=== PATIENT | female | born 1965 | race Caucasian/White ===

== ENCOUNTER 2017-08-26 10:41 | Emergency (ER) | payer OTHER ==
[2017-08-26 11:02] VITALS: BMI 32.3
[2017-08-26] MEDS ORDERED: SODIUM CHLORIDE 1,000 ML IV STA (12:14)
[2017-08-26] MEDS ORDERED: KETOROLAC TROMETHAMINE 30 MG/1 ML VIAL IVPUSH ONE (12:15)
--- NOTE | 2017-08-26 12:18 | PDOC ---
Attending Attestation - HPI HPI: 08/26/17 13:05 The patient is a 51 year old female with a significant PMH of hypertension who presents to the emergency department with 3 weeks of lower back pain. The patient reports that her lower back pain has worsened over the past 3 days . she states that her lower back pain is intermittent, worse with movement and has causes her discomfort. The patient reports occasional chest pain that radiates to her shoulders. She reports associated SOB with her chest pain. The patient denies any headache or dizziness. She denies any fever, chills, nausea, vomit, diarrhea or constipation. She denies any urinary symptoms. The patient denies any numbness , weakness or tingling sensation. The patient denies any other complaints. Documentation prepared by Mark Montaño, acting as medical customer service representative for Andrzej Phillips MD. - Physicial Exam PE: 08/26/17 13:05 Vitals: Triage vital signs reviewed General Appearance: No acute distress, well nourished, well developed Head: Atraumatic Neck: Supple; No nuchal rigidity Chest Wall: Nontender Cardiac: Regular rate and rhythm, no murmurs, no rubs, no gallops Lungs: Clear to auscultation bilateral, good air movement bilaterally Abdomen: Soft, nondistended, normal bowel sounds, nontender to palpation Genitourinary: Rectal: Exam deferred Extremities:(+) reproducible bilateral lower back pain on exam. Full range of motion to all extremities, no cyanosis, clubbing, or edema Skin: Warm and dry, no rashes or lesions, no rash, no petechiae Neuro: AOX3; Cranial Nerves 2-12 grossly intact, Strength intact to all extremities, Sensation intact to all extremities, gait normal Psych: Normal mood, normal affect - Medical Decision Making 08/26/17 13:05 The patient is a 51 year old female with a significant PMH of hypertension who presents to the emergency department with 3 weeks of lower back pain The patient will get a CT of back. <Mark Montaño - Last Filed: 08/26/17 13:05> - Resident Resident Name: Db Ambrocio - ED Attending Attestation I have performed the following: I have examined & evaluated the patient, The case was reviewed & discussed with the resident, I agree w/resident's findings & plan, Exceptions are as noted - Medical Decision Making 08/26/17 16:49 Low back discomfort x-rays within normal limits labs within normal limits patient feels better after Tylenol. We will discharge home with orthopedic follow-up Findings, need for follow-up and strict return instructions discussed with patient. <Andrzej Phillips - Last Filed: 08/26/17 16:51> Heart Score/ECG Review - ECG Impressions Comment:: 08/26/17 16:50 EKG performed at 75 bpm. MT interval 164 QRS 84 QTC 437 also elevations or T- wave inversions Interpreted by me. <Andrzej Phillips - Last Filed: 08/26/17 16:51>
--- NOTE | 2017-08-26 12:40 | PDOC ---
History of Present Illness - General Chief Complaint: Pain Stated Complaint: KIDNEY PAIN Time Seen by Provider: 08/26/17 11:50 History Source: Patient Exam Limitations: Language Barrier - History of Present Illness Initial Comments: 08/26/17 12:35 Patient is a 51F with history of HTN here today complaining of "kidney pain" for the past three weeks, worsening over the past 3 days. Patient states her pain is located bilaterally in her lower back, with the left hurting more than the right. Patient denies fevers, chills, nausea, vomiting, and pain with urination. She states that her pain is made worse with movement. Denies trauma, problems going to the bathroom and IVDU. Patient states that she's been able to walk, but with pain. Denies any focal weakness. Endorses shortness of breath, denies leg swelling, chest pain, and history of blood clots. Past History - Past Medical History Allergies/Adverse Reactions: Allergies Allergy/AdvReac Type Severity Reaction Status Date / Time No Known Allergies Allergy Verified 08/26/17 10:58 COPD: No HTN: Yes - Surgical History Cholecystectomy: Yes - Suicide/Smoking/Psychosocial Hx Smoking History: Current every day smoker Have you smoked in the past 12 months: Yes Number of Cigarettes Smoked Daily: 10 Information on smoking cessation initiated: Yes 'Breaking Loose' booklet given: 08/26/17 Hx Alcohol Use: No Drug/Substance Use Hx: No Substance Use Type: None Review of Systems - Review of Systems Comments:: 08/26/17 12:38 GENERAL/CONSTITUTIONAL: No fever or chills. No weakness. HEAD, EYES, EARS, NOSE AND THROAT: No change in vision. No sore throat. CARDIOVASCULAR: No chest pain. Positive for shortness of breath RESPIRATORY: No cough, wheezing, or hemoptysis. GASTROINTESTINAL: No nausea, vomiting, diarrhea or constipation. GENITOURINARY: No dysuria, frequency, or change in urination. MUSCULOSKELETAL: No joint or muscle swelling or pain. Positive for back pain. SKIN: No rash NEUROLOGIC: No headache, vertigo, loss of consciousness, or change in strength/ sensation. HEMATOLOGIC/LYMPHATIC: No anemia, easy bleeding, or history of blood clots. ALLERGIC/IMMUNOLOGIC: No hives or skin allergy. *Physical Exam - Vital Signs Last Vital Signs Temp Pulse Resp BP Pulse Ox 97.8 F 84 18 126/95 100 08/26/17 10:59 08/26/17 10:59 08/26/17 10:59 08/26/17 10:59 08/26/17 10:59 - Physical Exam Comments: 08/26/17 12:38 GENERAL: Awake, alert, and fully oriented, in no acute distress HEAD: No signs of trauma, normocephalic, atraumatic EYES: PERRLA, EOMI, sclera anicteric, conjunctiva clear ENT: Auricles normal inspection, hearing grossly normal, nares patent, oropharynx clear without exudates. Moist mucosa NECK: Normal ROM, supple, no lymphadenopathy, JVD, or masses LUNGS: Tachypneic, speaks full sentences, clear to auscultation bilaterally HEART: Regular rate and rhythm, normal S1 and S2, no murmurs, rubs or gallops, peripheral pulses normal and equal bilaterally. ABDOMEN: Soft, nontender, normoactive bowel sounds. No guarding, no rebound. No masses BACK: Tender to palpation bilaterally in lower back, no midline tenderness EXTREMITIES: Normal inspection, Normal range of motion, no edema. No clubbing or cyanosis. NEUROLOGICAL: Cranial nerves II through XII grossly intact. Normal speech, normal gait, no focal sensorimotor deficits, no cerebellar signs. SKIN: Warm, Dry, normal turgor, no rashes or lesions noted. ED Treatment Course - LABORATORY CBC & Chemistry Diagram: 08/26/17 13:23 08/26/17 13:23 - RADIOLOGY Radiology Studies Ordered: Category Date Time Status CHEST PA & LAT [RAD] Stat Radiology 08/26/17 12:15 Ordered Medical Decision Making - Medical Decision Making 08/26/17 12:40 Patient is 51F with history of HTN here today with lower back pain. Process Engineer used to gather history. DDx includes, but is not limited to: MSK pain, kidney stones, LL pneumonia. Will evaluate with cbc, cmp, cxr. Will treat with fluids and toradol. 08/26/17 15:25 Laboratory Tests 08/26/17 08/26/17 08/26/17 13:23 13:23 13:25 WBC 10.1 H Hgb 14.2 Plt Count 440 H Troponin I < 0.02 Urine Nitrite Negative Ur Leukocyte Esterase 1+ H Urine WBC (Auto) 3 Urine RBC (Auto) 2 CBC shows small leukocytosis, troponin undetectable, UA negative, cmp reassuring. Pending x-ray reads. 08/26/17 16:24 CXR, lumbar spine x-rays negative. Will discharge with return precautions and ortho follow up. 08/26/17 16:43 EKG shows normal sinus rhythm with rate of 75. No st elevation/depression. No significant t wave abnormalities. Normal SC/QRS/QTc intervals. *DC/Admit/Observation/Transfer Diagnosis at time of Disposition: Back pain - Discharge Dispostion Disposition: HOME Condition at time of disposition: Good Decision to Admit order: No - Referrals Referrals: Sally Campbell MD [Primary Care Provider] - Shaheen Damon MD [Staff Physician] - - Patient Instructions Printed Discharge Instructions: DI for Low Back Pain Additional Instructions: Please return if you have any new worsening or concerning symptoms. Please follow up with your primary care physician this week. Print Language: [place] - Post Discharge Activity Forms/Work/School Notes: Back to Work
[2017-08-26] MEDS ORDERED: KETOROLAC TROMETHAMINE 30 MG/1 ML VIAL ONE (13:28)
[2017-08-26 13:49] LABS: HEMOGLOBIN 14.2 GM/dL (10.7-15.3); MCH 29.2 pg (25.7-33.7); MCHC 33.2 g/dl (32.0-36.0); MEAN CELL VOLUME 88.1 fl (80-96); MEAN PLT VOLUME 7.4 fl (7.5-11.1); PLATELET COUNT 440 K/MM3 (134-434); RBC 4.88 M/mm3 (3.60-5.2); RDW 14.1 % (11.6-15.6); WHITE BLOOD COUNT 10.1 K/mm3 (4.0-10.0)
[2017-08-26 14:08] LABS: URINE APPEARANCE CLEAR; URINE BILIRUBIN NEGATIVE (<2.0 mg/dL); URINE COLOR LTYELLOW; URINE GLUCOSE (UA) NEGATIVE (NEGATIVE); URINE KETONE NEGATIVE (NEGATIVE); URINE NITRITE NEGATIVE (NEGATIVE); URINE PROTEIN NEGATIVE (NEGATIVE); URINE UROBILINOGEN NEGATIVE mg/dL (0.2-1.0)
[2017-08-26 14:19] LABS: ALBUMIN 3.7 g/dl (3.4-5.0); ANION GAP 6 (8-16); BILIRUBIN,TOTAL 0.3 mg/dL (0.2-1.0); BLOOD UREA NITROGEN 11 mg/dL (7-18); CALCIUM 8.8 mg/dL (8.5-10.1); CHLORIDE 108 mmol/L (98-107); CO2 26 mmol/L (21-32); CREATININE 0.6 mg/dL (0.55-1.02); GLUCOSE,RANDOM 83 mg/dL (74-106); SGPT/ALT 28 U/L (12-78); SODIUM 140 mmol/L (136-145); TOT PROT 7.7 g/dl (6.4-8.2)
[2017-08-26 14:21] LABS: ALK PHOS 155 U/L (45-117)
[2017-08-26 14:22] LABS: URINE LEUK ESTERASE 1+ (NEGATIVE)
[2017-08-26 14:26] LABS: POTASSIUM 5.4 mmol/L (3.5-5.1); SGOT/AST 41 U/L (15-37)
[2017-08-26 14:28] LABS: EPI CELLS RARE /HPF (FEW)
[2017-08-26] MEDS ORDERED: ACETAMINOPHEN 325 MG TABLET (FP) PO ONE (16:31)
[2017-08-26] MEDS ORDERED: ACETAMINOPHEN 325 MG TABLET (FP) ONE (16:41)
[2017-08-26 16:51] VITALS: BP 116/79; PULSE 73; TEMP 97.9
--- NOTE | 2017-08-27 11:55 | EKG ---
Test Reason : Blood Pressure : / mmHG Vent. Rate : 075 BPM Atrial Rate : 075 BPM P-R Int : 164 ms QRS Dur : 084 ms QT Int : 392 ms P-R-T Axes : 063 005 052 degrees QTc Int : 437 ms NORMAL SINUS RHYTHM NORMAL ECG NO PREVIOUS ECGS AVAILABLE Confirmed by MD LEXIE, LEANNA ([id number]) on 08/27/2017 11:55:44 AM Referred By: Confirmed By:LEANNA OWEN MD
== END 2017-08-26 16:51 | disposition home or self-care (01) ==
LOC: JER 10:41
PROC: 3E0337Z Introduction of Electrolytic and Water Balance Substance into Peripheral Vein, Percutaneous Approach (ICD-10-PCS; principal; 2017-08-26)
PROC: 3E0333Z Introduction of Anti-inflammatory into Peripheral Vein, Percutaneous Approach (ICD-10-PCS; 2017-08-26)
DX: M54.5 Low back pain (principal); I10 Essential (primary) hypertension; F17.210 Nicotine dependence, cigarettes, uncomplicated
CPT/HCPCS: 36415; 71046-TC-FY; 72100-TC-FY; 80053; 81003; 81015; 84484; 85027; 93005; 93010; 96361; 96374; 99284-25; J7030

== ENCOUNTER 2018-04-26 14:55 | Emergency (ER) | payer OTHER ==
[2018-04-26 15:06] VITALS: TEMP 98.2; BMI 32.5
--- NOTE | 2018-04-26 15:14 | PDOC ---
History of Present Illness - General Chief Complaint: Chest Pain Stated Complaint: CHEST PAIN Time Seen by Provider: 04/26/18 15:13 History Source: Patient Exam Limitations: No Limitations - History of Present Illness Initial Comments: Pt presenting with complaints of increased fatigue, skin flushing, and chest pain x2 days. Pt states over the past few days, she has woken up feeling fatigued, and is feeling more fatigued throughout the day, worsening each day. She states her skin is feeling flushed, and has been feeling naseous. She has had intermittent mid-sternal chest pain. The pain is pressure-like, lasts for about 10 minutes, but is not associated with radiation or diaphoresis. She went to [place] [facility] 4 days ago, for feeling like "her thyroid and was prescribed 5 mg PO methimazole, which she did not take for concerns of any side effects. She had a recent mammogram and was told she needs a R breast biopsy ( scheduled for Saturday). She has also recently been told she has an "ovarian mass". Pt denies any fevers/chills, headache, vision changes, syncope, palpitations, SOB, vomiting, abdominal pain, urinary symptoms, diarrhea/ constipation, or leg swelling. PCP: Dr. Greene Endocrine: Dr. Kramer Social: Pt smokes 2-3 cigarettes per day; denies alcohol or drug use. Pt denies any recent travel or sick contacts. Surgical: cholecystectomy Family: HTN/DM in parents and grandparents. 04/26/18 15:15 04/26/18 17:13 Past History - Travel Traveled outside of the country in the last 30 days: No Close contact w/someone who was outside of country & ill: No - Past Medical History Allergies/Adverse Reactions: Allergies Allergy/AdvReac Type Severity Reaction Status Date / Time diphenhydramine Allergy Verified 04/26/18 15:12 [From Benadryl] Home Medications: Ambulatory Orders Amlodipine Besylate 5 mg PO DAILY 04/26/18 COPD: No Diabetes: No HTN: Yes Hypercholesterolemia: No Thyroid Disease: Yes (hypo) - Surgical History Cholecystectomy: Yes - Family Disease History Family Disease History: Diabetes: Grandparents (htn), Father (htn), Mother (htn) , Heart Disease: Grandparents, Father, Mother - Reproductive History LMP comment: Dec 2016 - Suicide/Smoking/Psychosocial Hx Smoking History: Current every day smoker Have you smoked in the past 12 months: Yes Number of Cigarettes Smoked Daily: 3 Information on smoking cessation initiated: No 'Breaking Loose' booklet given: 08/26/17 Hx Alcohol Use: No Drug/Substance Use Hx: No Substance Use Type: None Review of Systems - Review of Systems Able to Perform ROS?: Yes (fashion illustrator used) Is the patient limited Luxem[place]ish proficient: Yes Constitutional: Yes: Weight Stable. No: Chills, Diaphoresis, Fever, Loss of Appetite, Night Sweats, Weakness HEENTM: No: Recent change in vision, Double Vision, Throat Pain, Throat Swelling , Difficulty Swallowing Respiratory: No: Cough, Orthopnea, Shortness of Breath Cardiac (ROS): Yes: Chest Pain. No: Edema, Irregular Heart Rate, Lightheadedness, Palpitations, Syncope, Chest Tightness ABD/GI: Yes: Nausea. No: Constipated, Diarrhea, Poor Appetite, Poor Fluid Intake, Vomiting, Abdominal cramping : No: Burning, Dysuria, Flank Pain, Pain, Urgency Musculoskeletal: No: Back Pain, Joint Pain Integumentary: Yes: Flushing. No: Rash, Sweating Neurological: Yes: Dizziness (vertigo). No: Headache, Numbness, Paresthesia, Seizure, Tremors, Weakness, Unsteady Gait, Ataxia Psychiatric: No: Sleep Pattern Change, Change in Appetite Endocrine: Yes: Flushing, Intolerance to Cold, Intolerance to Heat. No: Increased Urine Hematologic/Lymphatic: No: Anemia, Blood Clots, Easy Bleeding, Easy Bruising All Other Systems: Reviewed and Negative *Physical Exam - Vital Signs Last Vital Signs Temp Pulse Resp BP Pulse Ox 98.2 F 101 H 20 121/97 97 04/26/18 14:59 04/26/18 14:59 04/26/18 14:59 04/26/18 14:59 04/26/18 14:59 - Physical Exam General Appearance: Yes: Nourished, Appropriately Dressed, Obese. No: Apparent Distress HEENT: positive: EOMI, TD, Normal ENT Inspection, Normal Voice, Pharynx Normal , Hearing Grossly Normal. negative: Scleral Icterus (R), Scleral Icterus (L), Muffled/Hoarse voice, Pharyngeal Erythema, Tonsillar Exudate, Tonsillar Erythema , Excessive drooling Neck: positive: Trachea midline, Normal Thyroid, Supple. negative: Tender, Rigid, Carotid bruit, Decreased range of motion, Stridor, Lymphadenopathy (R), Lymphadenopathy (L), Thyromegaly Respiratory/Chest: positive: Lungs Clear, Normal Breath Sounds. negative: Chest Tender, Respiratory Distress, Accessory Muscle Use, Crackles, Wheezing Cardiovascular: positive: Regular Rhythm, S1, S2, Tachycardia. negative: Regular Rate, Edema, JVD, Murmur Vascular Pulses: Carotid (R): 4+, Carotid (L): 4+ Gastrointestinal/Abdominal: positive: Normal Bowel Sounds, Soft, Protuberent. negative: Tender, Flat, Organomegaly, Pulsatile Mass Rectal Exam: positive: deferred Lymphatic: negative: Adenopathy, Tenderness Musculoskeletal: positive: Normal Inspection. negative: CVA Tenderness Extremity: positive: Normal Capillary Refill, Normal Inspection, Normal Range of Motion, Pelvis Stable. negative: Tender Integumentary: positive: Normal Color, Dry, Warm. negative: Jaundice, Clammy, Diaphoresis Neurologic: positive: it support manager II-XII NML intact, Fully Oriented, Alert, Normal Response, Motor Strength 5/5. negative: Normal Mood/Affect (pt anxious), EOM Palsy, Numbness Moderate Sedation - Procedure Monitoring Vital Signs: Procedure Monitoring Vital Signs Temperature 98.2 F 04/26/18 14:59 Pulse Rate 101 H 04/26/18 14:59 Respiratory Rate 20 04/26/18 14:59 Blood Pressure 121/97 04/26/18 14:59 O2 Sat by Pulse Oximetry (%) 97 04/26/18 14:59 ED Treatment Course - LABORATORY CBC & Chemistry Diagram: 04/26/18 15:53 04/26/18 15:53 Medical Decision Making - Medical Decision Making Pt was seen at bedside, also will be seen by attending Dr. Montero. Pt presenting with complaints of increased fatigue, skin flushing, and chest pain x2 days. Pt states over the past few days, she has woken up feeling fatigued, and is feeling more fatigued throughout the day, worsening each day. She states her skin is feeling flushed, and has been feeling naseous. She has had intermittent mid-sternal chest pain. The pain is pressure-like, lasts for about 10 minutes, but is not associated with radiation or diaphoresis. She went to [facility] 4 days ago, and was prescribed methimazole, which she did not take for concerns of any side effects. She had a recent mammogram and was told she needs a R breast biopsy (scheduled for Saturday). She has also recently been told she has an "ovarian mass". Pt denies any fevers/chills, headache, vision changes, syncope, palpitations, SOB, vomiting, abdominal pain, urinary symptoms, diarrhea/constipation, or leg swelling. Minimal tachycardia (101), afebrile, BP stable. PE showed no thyroid goiter, no pharyngeal edema. Heart and lung sounds clear. Considering thyroid disorder (thyroid storm, hypo/hyperthyroidism), electrolyte imbalances, ACS Ordered work-up including ECG, CBC, CMP, serum , TSH, free T4, and chest x-ray. Provided 650 mg PO tylenol for improvement of discomfort. Cannot provide meclizine for anxiety/vertigo as pt allergic to anti-histamines (throat swelling ) Will continue to reassess pt and monitor for symptomatic improvement. 04/26/18 15:15 CBC: mild WBC elevation (likely reactive) 12.5 CMP: generally WNL Trop <.02 TSH <.01 (low -- will have pt stop levothyroxine), T4 1.01 (WNL) Pt taken for chest x-ray. 04/26/18 16:51 Chest x-ray appears clear. Pt can be discharged to home with follow-up. Pt advised to keep her PCP appointment (Saturday), her endocrine appointment (Saturday), and scheduled breast biopsy (Saturday). Strict return precautions provided with pt understanding. Pt advised to stop taking levothyroxine until she sees her audit consultant on Saturday (TSH was low). 04/26/18 17:22 04/26/18 18:26 *DC/Admit/Observation/Transfer Diagnosis at time of Disposition: Chest pain Qualifiers: Chest pain type: unspecified Qualified Code(s): R07.9 - Chest pain, unspecified - Discharge Dispostion Disposition: HOME Condition at time of disposition: Improved Decision to Admit order: No - Referrals Referrals: Coreen Moffett MD [Primary Care Provider] - - Patient Instructions Printed Discharge Instructions: DI for Atypical Chest Pain, DI for Hypothyroidism Additional Instructions: You were seen in the ER today for chest pain and skin flushing. The results of your labs and imaging today showed decreased thyroid levels. Please keep your appointments with your PCP and audit consultant. Please return to the ER if you have any worsening chest pain, development of fevers or chills, loss of consciousness, inability to tolerate food or fluids, or any other concerns. Please stop taking your levothyroxine until you see your audit consultant on Saturday. Print Language: [place] CITIZEN - Post Discharge Activity
--- NOTE | 2018-04-26 15:59 | PDOC ---
Attending Attestation - HPI HPI: 04/26/18 16:31 The patient is a 52 year old female with a significant PMH of hypothyroidism and HTN who presents to the emergency department with generalized weakness, dizziness, and chest tightness for the past several days. Patient describes the dizziness as the room is spinning. Patient states the chest tightness is worse on right side with radiating to her left arm. Patient also admits to nausea but no vomiting. The patient was concerned as she was recently told "she had something in her ovary" and was found to "have something else in her right breast which they biopsied." Patient also went to an emergency room in [place] 4 days ago for swelling in her throat secondary to hypothyroidism and was discharged home on medication which she has not taken. Patient will see her thyroid doctor early next week. The patient denies shortness of breath, and headache. Denies fever, chills, vomit, diarrhea and constipation. Denies dysuria, frequency, urgency and hematuria. Allergies: NKA Past surgical history: cholecystectomy Social history: No reported drug or alcohol use. Smokes 2-3 cigarettes per day. PCP: Dr. Greene <Bailye Ryder - Last Filed: 04/26/18 16:32> - Resident Resident Name: Keyla Garcia - ED Attending Attestation I have performed the following: I have examined & evaluated the patient, The case was reviewed & discussed with the resident, I agree w/resident's findings & plan, Exceptions are as noted - Physicial Exam PE: GENERAL: Awake, alert, and fully oriented, in no acute distress. Appears anxious. HEAD: No signs of trauma EYES: PERRLA, EOMI, sclera anicteric, conjunctiva clear ENT: Auricles normal inspection, hearing grossly normal, nares patent, oropharynx clear without exudates. Moist mucosa NECK: Normal ROM, supple, no lymphadenopathy, JVD, or masses LUNGS: Breath sounds equal, clear to auscultation bilaterally. No wheezes, and no crackles HEART: Regular rate and rhythm, normal S1 and S2, no murmurs, rubs or gallops ABDOMEN: Soft, nontender, normoactive bowel sounds. No guarding, no rebound. No masses EXTREMITIES: Normal range of motion, no edema. No clubbing or cyanosis. No cords, erythema, or tenderness NEUROLOGICAL: Cranial nerves II through XII grossly intact. Normal speech, normal gait. Motor and sensation intact SKIN: Warm, Dry, normal turgor, no rashes or lesions noted. - Medical Decision Making Pt with signs of hyperthyroid on labs. She has appt with her PMD on Saturday (it is currently Saturday) and an pedicurist on Saturday. Advised her to hold her synthroid until she follows up. No signs of thyroid storm. Her main concern is that she recently was told she has a mass in her breast ( pending outpatient biopsy) and in her ovary (evaluated by salesperson used cars, needs surgery, but is still waiting for approval for surgery). <Tarsha Montero - Last Filed: 04/26/18 17:36>
[2018-04-26 16:17] LABS: BASO % 0.5 % (0-2.0); EOS % 2.8 % (0-4.5); HEMATOCRIT 38.8 % (32.4-45.2); HEMOGLOBIN 13.1 GM/dL (10.7-15.3); LYMPH % 27.6 % (8-40); MCH 28.6 pg (25.7-33.7); MCHC 33.9 g/dl (32.0-36.0); MEAN CELL VOLUME 84.2 fl (80-96); MEAN PLT VOLUME 7.6 fl (7.5-11.1); MONO % 7.7 % (3.8-10.2); NEUT % 61.4 % (42.8-82.8); PLATELET COUNT 455 K/MM3 (134-434); RDW 15.1 % (11.6-15.6); WHITE BLOOD COUNT 12.5 K/mm3 (4.0-10.0)
[2018-04-26] MEDS ORDERED: ACETAMINOPHEN 325 MG TABLET (FP) PO ONE (16:19)
[2018-04-26 16:31] LABS: ALBUMIN 3.4 g/dl (3.4-5.0); ALK PHOS 179 U/L (45-117); ANION GAP 5 MMOL/L (8-16); BILIRUBIN,TOTAL 0.2 mg/dL (0.2-1); BLOOD UREA NITROGEN 12 mg/dL (7-18); CALCIUM 9.2 mg/dL (8.5-10.1); CHLORIDE 106 mmol/L (98-107); CO2 29 mmol/L (21-32); CREATININE 0.8 mg/dL (0.55-1.3); GLUCOSE,RANDOM 95 mg/dL (74-106); POTASSIUM 4.1 mmol/L (3.5-5.1); SGOT/AST 23 U/L (15-37); SGPT/ALT 32 U/L (13-61); SODIUM 141 mmol/L (136-145); TOT PROT 6.7 g/dl (6.4-8.2)
[2018-04-26] MEDS ORDERED: ACETAMINOPHEN 325 MG TABLET (FP) ONE (16:33)
[2018-04-26 17:43] VITALS: BP 136/82; PULSE 85
--- NOTE | 2018-04-27 08:42 | EKG ---
Test Reason : Blood Pressure : / mmHG Vent. Rate : 094 BPM Atrial Rate : 094 BPM P-R Int : 166 ms QRS Dur : 080 ms QT Int : 340 ms P-R-T Axes : 060 004 053 degrees QTc Int : 425 ms NORMAL SINUS RHYTHM POSSIBLE LEFT ATRIAL ENLARGEMENT BORDERLINE ECG WHEN COMPARED WITH ECG OF 26-AUG-2017 14:59, NO SIGNIFICANT CHANGE WAS FOUND Confirmed by MEDINA GREENFIELD, EMELIA ([id number]) on 04/27/2018 8:41:42 AM Referred By: Confirmed By:EMELIA HANEY MD
== END 2018-04-26 17:43 | disposition home or self-care (01) ==
LOC: JER 14:55
DX: R07.9 Chest pain, unspecified (principal); E03.9 Hypothyroidism, unspecified; I10 Essential (primary) hypertension
CPT/HCPCS: 36415; 71046-TC-FY; 80053; 84439; 84443; 84484; 84703; 85025; 93005; 93010; 99283-25

== ENCOUNTER 2018-09-05 14:20 | Emergency (ER) | payer OTHER ==
[2018-09-05] MEDS ORDERED: ASPIRIN 81 MG CHEWABLE TABLETS PO ONE (14:28)
--- NOTE | 2018-09-05 14:28 | PDOC ---
Rapid Medical Evaluation Time Seen by Provider: 09/05/18 14:26 Medical Evaluation: Allergies Allergy/AdvReac Type Severity Reaction Status Date / Time diphenhydramine Allergy Verified 04/26/18 15:12 [From Benadryl] 09/05/18 14:26 I have performed a brief in-person evaluation of this patient. The patient presents with a chief complaint of: chest pain x 1.5 hours, started in epigastrum and radiated up, intermittent left arm pain as well now resolved. mild SOB. hx HTN, "thyroid" +smoker. PCP Jc Pertinent physical exam findings: uncomfortable appearing, tachy I have ordered the following: ekg, labs, aspiring The patient will proceed to the ED for further evaluation.
[2018-09-05 14:29] VITALS: TEMP 98; BMI 31.3
--- NOTE | 2018-09-05 15:11 | PDOC ---
History of Present Illness - General Chief Complaint: Chest Pain Stated Complaint: CHEST PAIN Time Seen by Provider: 09/05/18 14:26 - History of Present Illness Initial Comments: Constance Griffith is a [place]an-speaking woman (interviewed w/ phone educational sign language interpreter [id number]) who presents reporting mid-sternal chest pain, left arm pain, and nausea that started after lunch today. She states that the pain started "in the pit of her stomach" around noon, immediately after she ate lunch. She says it is now a burning pain in her sternum and cramping pain in her left arm. The pain comes and goes randomly. She has not noticed any association with movement , position, or exertion. She says that she had lightheadedness and nausea along with the pain, and she thinks she might have been sweating earlier. She denies any recent change in medications, travel, sick contacts immobilization, or other recent changes. She says that her medical conditions are well controlled on her current meds. Ms Griffith is extremely concerned that the pain is due to a heart problem as her father at age 35 from unknown heart problems, and her sister had 3 heart attacks. She also reports being a current smoker; she had quit 4 months ago but went back to smoking 2 cigarettes per day. Past History - Past Medical History Allergies/Adverse Reactions: Allergies Allergy/AdvReac Type Severity Reaction Status Date / Time diphenhydramine Allergy Verified 09/05/18 14:29 [From Jose] Home Medications: Ambulatory Orders Amlodipine Besylate 5 mg PO DAILY 04/26/18 COPD: No Diabetes: No HTN: Yes Hypercholesterolemia: No Thyroid Disease: Yes (hypo) - Surgical History Cholecystectomy: Yes - Family Disease History Family Disease History: Diabetes: Grandparents (htn), Father (htn), Mother (htn) , Heart Disease: Grandparents, Father, Mother - Suicide/Smoking/Psychosocial Hx Smoking History: Current every day smoker Have you smoked in the past 12 months: Yes Number of Cigarettes Smoked Daily: 3 Information on smoking cessation initiated: No 'Breaking Loose' booklet given: 08/26/17 Hx Alcohol Use: No Drug/Substance Use Hx: No Substance Use Type: None Review of Systems - Review of Systems Comments:: General: No fevers, no chills, no weight or appetite change, no malaise HEENT: No changes in vision, no changes in hearing, no congestion, no sore throat CV: +chest pain, no palpitations, no LE edema Pulm: No SOB, no cough, no wheezing GI: +nausea, no change in bowel habits, no melena : No frequency, no urgency, no dysuria Musc: No back pain, no joint swelling, no recent injury. +L arm pain Skin: No rash, no lesions, no erythema Endo: No excessive thirst, no heat/cold intolerance Heme: No unusual bruising or bleeding, no swollen glands Neuro: No syncope, no numbness/tingling, no focal weakness Vasc: No claudication Psych: No recent change in mood, no SI or HI *Physical Exam - Vital Signs Last Vital Signs Temp Pulse Resp BP Pulse Ox 98 F 112 H 19 155/91 100 09/05/18 14:27 09/05/18 14:27 09/05/18 14:27 09/05/18 14:27 09/05/18 14:27 - Physical Exam Comments: General: Anxious, uncomfortable, in no acute distress HEENT: PERRL, EOMI, MMM, voice normal, normal neck ROM Cards: Tachycardic, regular, no murmur appreciated. Mid-sternal TTP Pulm: Tachypnic, satting well on RA, clear to auscultation bilaterally w/o wheezing or crackles Abd: Soft, nontender, nondistended Ext: Atraumatic. No LE edema. ROM intact. Left arm tender to light touch Vasc: Extremities WWP Skin: Normal color, no rashes or lesions Neuro: A&Ox3, CN grossly intact, normal speech, motor/sensory grossly intact and symmetric Psych: Very anxious ED Treatment Course - LABORATORY CBC & Chemistry Diagram: 09/05/18 15:43 09/05/18 15:43 Medical Decision Making - Medical Decision Making 09/05/18 15:32 Constance Griffith is a [place]an-speaking woman (interviewed w/ phone educational sign language interpreter [id number]) who presents reporting burning mid-sternal chest pain, cramping intermittent left arm pain, and nausea that started after lunch today. She is a current smoker and reports a significant family cardiac history (father age 35 of cardiac cause, sister with 3x VT and recently of VT). - Ddx includes ACS, anxiety, GERD. Less likely respiratory. No risk factors for PE. Given timing and description of symptoms, reproducibility of pain, GERD seems most likely but will work up for cardiac causes of chest/arm pain and nausea. - Cardiac workup including CBC, chemistry, coags, EKG, CXR ordered in E. Adding TSH, T4 due to history of hyperthyroid and tachycardia on arrival - Still feeling nauseated, burning reproducible sternal pain suggestive of reflux. Maalox, famotidine, zofran for symptoms. - May need admission due to family hx 09/05/18 17:13 - Labs completed, reviewed. Notable for TSH 0.01, T4 12.8 (called lab, not recorded in EMR). - Continued tachycardia to 101 on re-exam though feels better - Trop negative - Symptoms may be due to hyperthyroid and tachycardia - Will admit after CXR is completed 09/05/18 17:52 - CXR w/o acute abnormalities - [facility] sent for admission for hyperthyroidism, tachycardia, chest pain 09/05/18 19:01 - Called into room by Ms Griffith. She became very irate following her xray. She states that she has been ignored, no one would take her to the bathroom, and the treatment here has been "inhumane." She states her intention to leave the hospital. - Attempted to discuss all results again, rationale for recommending admission, and risks of leaving the hospital without additional workup. Explained that pain could potentially be caused by increased demand from tachycardia, placing strain on her heart. Phone speeder worker #[id number] used during the discussion. - Pt continued to demand to leave the hospital as soon as possible. 09/05/18 19:11 - Patient provided discharge instructions in [place]an - Attempted to have patient sign AMA form using phone speeder worker #[phone] but she refused to sign. Patient seen and discussed with Dr Avila. Sarah Hillman PGY1 *DC/Admit/Observation/Transfer Diagnosis at time of Disposition: Chest pain, Hyperthyroidism - Discharge Dispostion Disposition: AGAINST MEDICAL ADVICE - Referrals Referrals: Sally Campbell MD [Primary Care Provider] - - Patient Instructions Printed Discharge Instructions: DI for Hyperthyroidism, DI for Chest Pain Additional Instructions: Discharge Instructions: You were seen in the emergency department for chest pain, left arm pain, and fast heart rate. You had blood tests including blood counts, blood chemistry, a heart test called troponin, liver function, kidney function, and thyroid (TSH, T4). These tests were all normal except for your thyroid, which showed a TSH of 0.01 and T4 of 12.8. You had a chest xray that did not show any concerning abnormalities. You were given medications including IV acetaminophen (Tylenol), Maalox, and famotidine (Pepcid) to help with your symptoms while you were waiting for your test results. It was recommended that you stay in the hospital for additional workup due to continued pain, hyperthyroidism, and fast heart rate. This was to make sure that you did not have any heart strain from the fast heart rate. There is no way to tell with certainty that there is no cardiac problem until the tests are repeated at least twice. Please continue to take all of your regular medications at home. Make an appointment to see your regular doctor as soon as possible. You may need additional testing, adjustment of your medications, or referral to a purchasing analyst. Seek immediate care at the closest ER if you have continued or worsening symptoms, additional chest pain, difficulty breathing, or any other concerning symptoms. Instrucciones de descarga: Fue atendido en el departamento de emergencias por dolor en el pecho, dolor en el brazo akila y ritmo cardaco acelerado. Se le realizaron anlisis de bong, incluidos recuentos sanguneos, qumica sangunea, un anlisis cardaco llamado troponina, funcin heptica, funcin renal y tiroides (TSH, T4). Todas estas pruebas fueron normales, excepto la tiroides, que mostr omega TSH de 0.01 y omega T4 de 12.8. Tuvo omega radiografa de trax que no mostr anomalas preocupantes. Se le administraron medicamentos que incluyen paracetamol intravenoso (Tylenol) , Maalox y famotidina (Pepcid) para ayudarlo con steve sntomas mientras esperaba los resultados de stock[place] prueba. Se recomend que permanezca en el hospital para un tratamiento adicional debido al dolor continuo, el hipertiroidismo y la frecuencia cardaca rpida. [place] fue para asegurarse de que no tuvo ningn esfuerzo cardaco debido a la frecuencia cardaca rpida. No hay forma de saber con certeza que no hay un problema cardaco hasta que las pruebas se repitan al menos dos veces. Por favor contine tomando todos steve medicamentos regulares en casa. Landry omega edmond para gloria a stockton mdico de cabecera lo antes posible. Es posible que necesite pruebas adicionales, ajuste de steve medicamentos o derivacin a un cardilogo. Busque atencin inmediata en la laila de emergencias ms cercana si tiene sntomas continuos o que empeoran, dolor de pecho adicional, dificultad para respirar o cualquier otro sntoma relacionado. Print Language: LUXEMBOURGER - Post Discharge Activity
[2018-09-05] MEDS ORDERED: MAG HYDROX/AL HYDROX/SIMETH -MYLANTA- ORAL SUSPENSION PO ONE (15:31)
[2018-09-05] MEDS ORDERED: FAMOTIDINE 20 MG/50 ML IVPB 20 MG/50 ML MG IVPB ONE ×2 (15:31→16:21)
[2018-09-05] MEDS ORDERED: ACETAMINOPHEN 1000 MG/100 ML VIAL (NON FORMULARY) IVPB ONE (15:31)
[2018-09-05] MEDS ORDERED: ONDANSETRON 4 MG/2 ML VIAL IVPUSH ONE (15:31)
[2018-09-05 16:13] LABS: BASO % 0.5 % (0-2.0); EOS % 1.8 % (0-4.5); HEMATOCRIT 41.4 % (32.4-45.2); HEMOGLOBIN 13.4 GM/dL (10.7-15.3); LYMPH % 21.1 % (8-40); MCH 27.1 pg (25.7-33.7); MCHC 32.2 g/dl (32.0-36.0); MEAN CELL VOLUME 84.1 fl (80-96); MEAN PLT VOLUME 7.8 fl (7.5-11.1); MONO % 8.7 % (3.8-10.2); NEUT % 67.9 % (42.8-82.8); PLATELET COUNT 439 K/MM3 (134-434); RBC 4.93 M/mm3 (3.60-5.2); RDW 15.7 % (11.6-15.6)
[2018-09-05] MEDS ORDERED: MAG HYDROX/AL HYDROX/SIMETH 30 ML UNIT-DOSE CUP ONE (16:20)
[2018-09-05] MEDS ORDERED: ACETAMINOPHEN INJECTION 100 ML IVPB ONE (16:20)
[2018-09-05] MEDS ORDERED: ASPIRIN 81 MG CHEWABLE TABLETS ONE (16:20)
[2018-09-05] MEDS ORDERED: ONDANSETRON 4 MG/2 ML VIAL ONE (16:20)
--- NOTE | 2018-09-05 16:27 | PDOC ---
Documentation entered by Fernando Wilson SCRIBE, acting as scribe for Paloma Avila MD. Paloma Avila MD: This documentation has been prepared by the Steve wise Daniel, SCRIBE, under my direction and personally reviewed by me in its entirety. I confirm that the documentation accurately reflects all work, treatment, procedures, and medical decision making performed by me. Attending Attestation - Resident Resident Name: KadySarah - ED Attending Attestation I have performed the following: I have examined & evaluated the patient, The case was reviewed & discussed with the resident, I agree w/resident's findings & plan, Exceptions are as noted - HPI HPI: 09/05/18 15:59 The patient is a 52 year old female with a past medical history of hyperthyroidism and HTN here today for evaluation of chest pain. The patient reports that she has been having left sided chest pain that radiates to her jaw and left arm. She notes that she did not take anything for the pain. She reports that this pain started in her abdomen and traveled to her chest after eating rice and a boiled egg. She notes nausea and diaphoresis. some sob. did have vamily h/o sister who of [place] recently, and father who also h/o [place]. Patient denies headache, lightheadedness. Denies fever, chills. Denies shortness of breath. Denies vomiting, diarrhea, abdominal pain. Denies lower extremity edema. Denies recent travel. Allergies: diphenhydramine PCP: Sally Christopher 09/05/18 16:20 - Physicial Exam PE: 09/05/18 16:22 awake alert lungs clear bilaterally, heart tachycardic no mrg abd soft nt nd ext wwp. no edema. no calf tenderness. nuero alert oriented x 3. skin warm and dry. - Medical Decision Making 09/05/18 16:23 52 yo F here with co chest pain differential acs, infection such as pna, gerd, electrolyte abnormalityk, anemia , . pt no risk factors for PE. plan labs ekg cxr trop. ekg repeated x 2 in triage, no st elevation or depression. labs pending asa given also given meds for reflux to see if helps due to burning quality of pain. due to pt risk factors of strong family history, will consider admission observation on telemetry. 09/05/18 16:25 Heart Score/ECG Review #1 General ECG Interpretation: Sinus Rhythm, Normal Intervals, No acute ischemic changes Compared to previous ECG there are: Other (sinus tachycardia)
[2018-09-05 16:39] LABS: ALBUMIN 3.6 g/dl (3.4-5.0); ALK PHOS 221 U/L (45-117); ANION GAP 7 MMOL/L (8-16); BILIRUBIN,TOTAL 0.3 mg/dL (0.2-1); BLOOD UREA NITROGEN 8 mg/dL (7-18); CALCIUM 9.1 mg/dL (8.5-10.1); CHLORIDE 108 mmol/L (98-107); CO2 26 mmol/L (21-32); CREATININE 0.7 mg/dL (0.55-1.3); GLUCOSE,RANDOM 96 mg/dL (74-106); MAGNESIUM 2.1 mg/dL (1.8-2.4); POTASSIUM 4.2 mmol/L (3.5-5.1); SGOT/AST 19 U/L (15-37); SGPT/ALT 34 U/L (13-61); SODIUM 141 mmol/L (136-145); TOT PROT 7.3 g/dl (6.4-8.2)
[2018-09-05 16:50] LABS: INR 1.1 (0.83-1.09)
[2018-09-05 17:14] VITALS: BP 144/88; PULSE 111
--- NOTE | 2018-09-06 15:36 | EKG ---
Test Reason : Blood Pressure : / mmHG Vent. Rate : 111 BPM Atrial Rate : 111 BPM P-R Int : 212 ms QRS Dur : 080 ms QT Int : 316 ms P-R-T Axes : 072 025 056 degrees QTc Int : 429 ms SINUS TACHYCARDIA WITH 1ST DEGREE A-V BLOCK OTHERWISE NORMAL ECG WHEN COMPARED WITH ECG OF 05-SEP-2018 14:15, NO SIGNIFICANT CHANGE WAS FOUND Confirmed by MD Vince, Fernando ([id number]) on 09/06/2018 3:36:27 PM Referred By: Confirmed By:Fernando Clarke MD
--- NOTE | 2018-09-06 15:37 | EKG ---
Test Reason : Blood Pressure : / mmHG Vent. Rate : 113 BPM Atrial Rate : 113 BPM P-R Int : 212 ms QRS Dur : 080 ms QT Int : 294 ms P-R-T Axes : 073 033 059 degrees QTc Int : 403 ms SINUS TACHYCARDIA WITH 1ST DEGREE A-V BLOCK OTHERWISE NORMAL ECG WHEN COMPARED WITH ECG OF 26-APR-2018 15:09, MI INTERVAL HAS INCREASED Confirmed by MD Vince, Fernando ([id number]) on 09/06/2018 3:36:44 PM Referred By: Confirmed By:Fernando Clarke MD
== END 2018-09-05 19:18 | disposition left against medical advice (07) ==
LOC: JER 14:20
PROC: 3E033NZ Introduction of Analgesics, Hypnotics, Sedatives into Peripheral Vein, Percutaneous Approach (ICD-10-PCS; principal; 2018-09-05)
PROC: 3E033GC Introduction of Other Therapeutic Substance into Peripheral Vein, Percutaneous Approach (ICD-10-PCS; 2018-09-05)
DX: R07.9 Chest pain, unspecified (principal); E05.90 Thyrotoxicosis, unspecified without thyrotoxic crisis or storm; F17.210 Nicotine dependence, cigarettes, uncomplicated
CPT/HCPCS: 36415; 71046-TC-FY; 80053; 82550; 83735; 84436; 84439; 84443; 84484; 85025; 85610; 93005; 93010; 99285-25; J0131

== ENCOUNTER → 2021-09-20 | Day surgery (SDC) | payer OTHER | END | disposition home or self-care (01) | LOC: JRADIR 09:49 | PROVIDERS: ATTEND Internal Medicine Endocrinology, Diabetes & Metabolism | PROC: 0G9G3ZX Drainage of Left Thyroid Gland Lobe, Percutaneous Approach, Diagnostic (ICD-10-PCS; principal; 2021-09-20) | DX: E04.1 Nontoxic single thyroid nodule (principal) | CPT/HCPCS: 10005; 76942; 88173; 88305-TC ==